=== PATIENT | female | born 1945 | race Caucasian/White ===

== ENCOUNTER 2016-04-05 21:25 | Outpatient (CLI) | payer MEDICARE, OTHER | END 2016-04-05 21:26 | disposition home or self-care (01) | DX: J44.1 Chronic obstructive pulmonary disease with (acute) exacerbation (principal) ==

== ENCOUNTER 2016-04-18 16:24 | Outpatient (CLI) | payer MEDICARE, OTHER ==
[2016-04-18] MEDS ORDERED: IOPAMIDOL-300 100 ML VIAL IVP ONE (17:16)
== END 2016-04-18 16:25 | disposition home or self-care (01) ==
DX: J44.1 Chronic obstructive pulmonary disease with (acute) exacerbation (principal)
CPT/HCPCS: 36415; 71260; 80053; 85025; Q9967